=== PATIENT | female | born 1990 | race Caucasian/White ===

== ENCOUNTER 2021-02-25 00:37 | Outpatient (CLI) | payer OTHER ==
[2021-02-25] MEDS ORDERED: PRENATAL TABLE1 EAC1 PO (02:13)
== END 2021-02-25 00:46 | disposition left against medical advice (07) ==
LOC: OBS/DEL 00:37
PROVIDERS: ATTEND Specialist
DX: O46.8X2 Other antepartum hemorrhage, second trimester (principal); Z3A.26 26 weeks gestation of pregnancy

== ENCOUNTER 2021-05-22 05:39 | Inpatient (IN) | payer OTHER ==
[~2021-05-22] VITALS: Ht 162.6 cm; Wt 2.7 kg
[~2021-05-22 05:39] MED LIST: PRENATAL TABLE1 EAC1 PO
[2021-05-22] MEDS ORDERED: VALTREX1000 MG PO (08:46)
== END 2021-05-24 14:24 | disposition home or self-care (01) | DRG 788 ==
LOC: LDR 05:39 → SURG-SUITE 05:39
PROVIDERS: ADMIT Specialist; ATTEND Specialist
PROC: 3E033VJ Introduction of Other Hormone into Peripheral Vein, Percutaneous Approach (ICD-10-PCS; 2021-05-22)
PROC: 10907ZC Drainage of Amniotic Fluid, Therapeutic from Products of Conception, Via Natural or Artificial Opening (ICD-10-PCS; 2021-05-22)
PROC: 4A1HXFZ Monitoring of Products of Conception, Cardiac Rhythm, External Approach (ICD-10-PCS; 2021-05-22)
PROC: 10D00Z1 Extraction of Products of Conception, Low, Open Approach (ICD-10-PCS; principal; 2021-05-22 12:00)
DX: O62.1 Secondary uterine inertia (principal); O61.0 Failed medical induction of labor; O99.824 Streptococcus B carrier state complicating childbirth; Z37.0 Single live birth; Z3A.39 39 weeks gestation of pregnancy

== ENCOUNTER 2021-08-01 15:30 | Emergency (ER) | payer OTHER ==
[~2021-08-01] VITALS: Ht 162.6 cm; Wt 46.3 kg
[~2021-08-01 15:30] MED LIST changes: +VALTREX1000 MG PO
== END 2021-08-01 19:47 | disposition home or self-care (01) ==
LOC: ER 15:30
DX: K52.89 Other specified noninfective gastroenteritis and colitis (principal)

== ENCOUNTER 2022-05-24 16:47 | Emergency (ER) | payer OTHER ==
[~2022-05-24] VITALS: Ht 162.6 cm; Wt 45.4 kg
== END 2022-05-24 20:12 | disposition home or self-care (01) ==
LOC: ER 16:47
DX: O21.8 Other vomiting complicating pregnancy (principal); O34.82 Maternal care for other abnormalities of pelvic organs, second trimester; N83.201 Unspecified ovarian cyst, right side; Z3A.17 17 weeks gestation of pregnancy; Z20.822 Contact with and (suspected) exposure to COVID-19